=== PATIENT | female | born 1980 | race Caucasian/White ===

== ENCOUNTER → 2019-02-21 | Outpatient (CLI) | payer BC ==
--- NOTE | 2019-02-25 10:22 | MM ---
Reason for exam: screening (asymptomatic). Last mammogram was performed 4 years and 6 months ago. History: Took hormonal contraceptives for 2 years. Physical Findings: A clinical breast exam by your physician is recommended on an annual basis and results should be correlated with mammographic findings. MG Screening Mammo w CAD Bilateral CC and MLO view(s) were taken. Prior study comparison: August 26, 2014, bilateral MG screening mammo w CAD. There are scattered fibroglandular densities. Stable axillary tail lymph node on the right. No significant changes when compared with prior studies. ASSESSMENT: Negative, BI-RAD 1 RECOMMENDATION: Routine screening mammogram of both breasts in 1 year.
== END | disposition home or self-care (01) ==
LOC: RADMAMWWP 14:52
PROVIDERS: ATTEND Obstetrics & Gynecology
DX: Z12.31 Encounter for screening mammogram for malignant neoplasm of breast (principal)
CPT/HCPCS: 77067

== ENCOUNTER → 2019-05-15 | Outpatient (CLI) | payer BC ==
--- NOTE | 2019-05-15 09:29 | US ---
EXAMINATION TYPE: US abdomen complete DATE OF EXAM: 05/15/2019 COMPARISON: CT 03/14/2013 CLINICAL HISTORY: R10.9 Abdominal pain. Pain after eating EXAM MEASUREMENTS: Liver Length: 14.8 cm Gallbladder Wall: 0.2 cm CBD: 0.6 cm Spleen: 11.2 cm Right Kidney: 11.1 x 3.7 x 4.4 cm Left Kidney: 10.7 x 4.7 x 4.3 cm Pancreas: Obscured by bowel gas Liver: Hyperechoic area left lobe measuring 1.5 x 1.0 x 1.1 cm, possible hemangioma vs other Gallbladder: Multiple shadowing stones visualized Evidence for sonographic Orosco's sign: No CBD: Measuring upper limits of normal Spleen: Accessory spleen visualized measuring 1.3 x 1.1 x 1.3 cm Right Kidney: No hydronephrosis or masses seen Left Kidney: No hydronephrosis. Echogenic foci mid pole visualized measuring 0.6 cm Upper IVC: wnl Abd Aorta: No sonographic evidence for AAA IMPRESSION: 1. Solitary 1.5 cm hyperechoic left hepatic lobe lesion. This most commonly represents a hemangioma i n a patient of this age with no known underlying hepatocellular disease. If there is further clinical concern this could be confirmed with three-phase enhanced CT abdomen or MRI liver mass protocol. 2. Cholelithiasis without sonographic evidence of acute cholecystitis. 3. Probable splenule adjacent to the elim ira spleen. 4. Nonobstructing 6 mm left renal calculus. No hydronephrosis of either kidney. 5. Obscuration of the pancreas by overlying bowel gas.
== END | disposition home or self-care (01) ==
LOC: RADUSWWP 08:03
PROVIDERS: ATTEND Family Medicine
DX: K80.20 Calculus of gallbladder without cholecystitis without obstruction (principal); N20.0 Calculus of kidney
CPT/HCPCS: 76700

== ENCOUNTER → 2019-11-21 | Day surgery (SDC) | payer BC ==
[2019-11-18 09:04] VITALS: BMI 32.1
[~2019-11-21] MED LIST: ACETAMINOPHEN TAB 500 MG TAB ONE; ACETAMINOPHEN TAB 500 MG TAB PO ONE; BUPIVACAINE (PF) 0.25% 30 ML VIAL SQ ONE; DEXAMETHASONE SOD PHOSPHATE 10 MG/ML 1 ML VIAL IV ONE; GLYCOPYRROLATE 0.2 MG/ML 2 ML VIAL ONE; HEPARIN SODIUM,PORCINE 5,000 UNIT/ML 1 ML VIAL ONE; HEPARIN SODIUM,PORCINE 5,000 UNIT/ML 1 ML VIAL SQ ONE; HYDROmorphone 0.5 MG/0.5 ML SYRINGE IVP PRN; KETOROLAC 30 MG/ML 1 ML VIAL ONE; LACTATED RINGERS 1,000 ML IV ONE; LACTATED RINGERS 1,000 ML IV SCH; LIDOCAINE 1% (10MG/ML) FOR IV START INTRADERMA PRN; LIDOCAINE 1% INJ 10MG/ML (20 ML MDV) ONE; MIDAZOLAM 2 MG/2 ML VIAL ONE; NALOXONE 0.4 MG/ML 1 ML VIAL IV PRN; NEOSTIGMINE 1 MG/ML 10 ML VIAL ONE; ONDANSETRON 4 MG/2 ML VIAL IVP ONE; ONDANSETRON 4 MG/2 ML VIAL ONE; PROPOFOL 10 MG/ML 20 ML VIAL IV ONE; ROCURONIUM 10 MG/ML (5 ML VIAL) IV ONE; SCOPOLAMINE 1.5MG/72HR PATCH TRANSDERM ONE; SUCCINYLCHOLINE CHLORIDE 100 MG/5 ML SYR IV ONE; fentaNYL (PF) 50 MCG/ML 2 ML AMP ONE; traMADol 50 MG TAB ONE; traMADol 50 MG TAB PO ONE; traMADol 50 MG TAB PO PRN
--- NOTE | 2019-11-21 07:44 | P.GSHP ---
History of Present Illness H&P Date: 11/21/19 Chief Complaint: Chronic cholecystitis 39-year-old female here today for elective cholecystectomy. Describes intermittent pains right upper quadrant. Frequently occurs at night. Some nausea. No change in the color of her skin urine or stools. Labs reviewed. Ultrasound shows gallstones. Past Medical History Additional Past Medical History / Comment(s): SEASONAL ALLERGIES. GALLBLADDER DISORDER. KIDNEY STONES History of Any Multi-Drug Resistant Organisms: None Reported Additional Past Surgical History / Comment(s): KIDNEY STONE REMOVED Past Anesthesia/Blood Transfusion Reactions: No Reported Reaction Past Psychological History: No Psychological Hx Reported Smoking Status: Former smoker Past Alcohol Use History: Occasional Additional Past Alcohol Use History / Comment(s): QUIT SMOKING 2005 Past Drug Use History: None Reported - Past Family History Father Family Medical History: Cancer Brother(s) Family Medical History: Cancer Medications and Allergies Home Medications Medication Instructions Recorded Confirmed Type No Known Home Medications 11/18/19 11/18/19 History Allergies Allergy/AdvReac Type Severity Reaction Status Date / Time No Known Allergies Allergy Verified 11/18/19 09:01 Surgical - Exam Physical exam: General: Well-developed, well-nourished HEENT: Normocephalic, sclerae nonicteric Abdomen: Nontender, nondistended Extremities: No edema Neuro: Alert and oriented Assessment and Plan (1) Chronic cholecystitis Narrative/Plan: Will proceed with laparoscopic cholecystectomy at this time. Risks of bleeding, infection, bile leak, bile duct injury, retained common bile duct stone, trocar injury, conversion to an open procedure, hernia, anesthesia related complications were reviewed. The patient understands and wishes to proceed. Current Visit: Yes Status: Acute Code(s): K81.1 - CHRONIC CHOLECYSTITIS SNOMED Code(s): 06479616
[2019-11-21 09:25] VITALS: TEMP 96.8
--- NOTE | 2019-11-21 09:30 | P.OP ---
Date of Procedure: 11/21/19 Procedure(s) Performed: PREOPERATIVE DIAGNOSIS: Chronic cholecystitis POSTOPERATIVE DIAGNOSIS: Same PROCEDURE: Laparoscopic cholecystectomy SURGEON: Sola EBL: Minimal see anesthesia record ANESTHESIA: Gen. COMPLICATIONS: None OPERATIVE PROCEDURE: The patient was brought and placed on the operating room table in the supine position. The patient was placed under general anesthesia at that time. The abdomen was prepped and draped in the usual sterile fashion. A small vertical infraumbilical incision was made. The fascia was grasped with the Izaiah forceps. The fascia was retracted anteriorly. The Veress needle was advanced into the peritoneal cavity. The saline drop test was normal. Insufflation quickly reached 15 mm. I was concerned we were preperitoneal. At that point a 5 mm optical trocar was used to enter the peritoneal cavity in the right upper quadrant without difficulty. Full insufflation took place up to 15 mmHg. the umbilical site was inspected. There was noted to be some air in the preperitoneal space as expected. A 5 mm trocar was placed into the umbilical trocar site without difficulty. An additional 5 mm trocar was placed in the lateral aspect of the right upper quadrant and a 12 mm trocar was advanced into the epigastric incision site. The gallbladder was retracted superiorly and laterally. The peritoneum overlying the infundibulum was bluntly dissected. The gallbladder was chronically inflamed. The patient had a short cystic duct making the dissection somewhat challenging. Once we're able to fully identify the cystic duct and the cystic artery with confidence the cystic duct was divided after the placement of 3 clips on the patient's side. The cystic artery was identified and clipped as well. A small vessel was seen along the gallbladder fossa and clipped as well. The gallbladder was then removed from the liver bed using electrocautery. The gallbladder was then removed from the epigastric trocar site with an Endo Catch bag. The gallbladder fossa was irrigated with saline. There was no evidence of any bleeding or biliary drainage seen. The fascia at the 12 millimeter site was closed using a Quincy- Hsemar 0 Vicryl stitch. The trochars were then removed. The skin at all 4 sites was closed using a 4-0 Monocryl stitch. Skin glue was utilized on the incision sites. At the end of this procedure the sponge and needle counts were correct. DISPOSITION: Stable to the recovery room
[2019-11-21 09:49] VITALS: RESP 16
[2019-11-21 11:40] VITALS: BP 170/99; PULSE 58
== END ==
LOC: OR 06:32
PROVIDERS: ATTEND Surgery
DX: K80.10 Calculus of gallbladder with chronic cholecystitis without obstruction (principal); J30.2 Other seasonal allergic rhinitis; Z87.442 Personal history of urinary calculi; Z87.891 Personal history of nicotine dependence; Z80.9 Family history of malignant neoplasm, unspecified
CPT/HCPCS: 81025; 88304; 47562; J2250; J1644; J1100; J2710; J0690; J2405; J2001; J3010; J1885; J0330; J2704

== ENCOUNTER → 2020-02-20 | Outpatient (CLI) | payer BC | END | disposition home or self-care (01) | LOC: LABWHC1 14:50 | PROVIDERS: ATTEND Family Medicine | DX: Z03.89 Encounter for observation for other suspected diseases and conditions ruled out (principal) | CPT/HCPCS: U0003; C9803 ==

== ENCOUNTER → 2020-05-14 | Outpatient (CLI) | payer BC ==
--- NOTE | 2020-05-18 10:24 | MM ---
Reason for exam: screening (asymptomatic). Last mammogram was performed 1 year and 3 months ago. History: Took hormonal contraceptives for 2 years. Physical Findings: A clinical breast exam by your physician is recommended on an annual basis and results should be correlated with mammographic findings. MG Screening Mammo w CAD Bilateral CC and MLO view(s) were taken. Prior study comparison: February 21, 2019, bilateral MG screening mammo w CAD. August 26, 2014, bilateral MG screening mammo w CAD. There are scattered fibroglandular densities. There is chronic nodularity in the right breast. No significant changes when compared with prior studies. ASSESSMENT: Negative, BI-RAD 1 RECOMMENDATION: Routine screening mammogram of both breasts in 1 year.
== END | disposition home or self-care (01) ==
LOC: RADMAMWWP 16:11
PROVIDERS: ATTEND Obstetrics & Gynecology
DX: Z12.31 Encounter for screening mammogram for malignant neoplasm of breast (principal)
CPT/HCPCS: 77067

== ENCOUNTER → 2020-09-16 | Outpatient (CLI) | payer BC ==
--- NOTE | 2020-09-17 06:39 | CT ---
EXAMINATION TYPE: CT abdomen wo/w con DATE OF EXAM: 09/16/2020 HISTORY: Hepatomegaly. Spot on liver. CT DLP: 1165.90mGycm Automated Exposure Control for Dose Reduction was Utilized. CONTRAST: CT scan of the abdomen is performed with oral and without and with IV Contrast, patient injected with 100 mL of Isovue 300. COMPARISON: Complete abdominal ultrasound May 15, 2019 FINDINGS: LUNG BASES: No significant abnormality is appreciated. LIVER/GB: Interval cholecystectomy with surgical clips now identified. Liver appears normal in size o n CT no concerning solid or cystic intrahepatic mass identified. Small hyperechoic area on ultrasound is anterior near fissure favors focal fatty infiltration. Single benign punctate calcification anter ior superior aspect series 3 image 11. PANCREAS: No significant abnormality is seen. SPLEEN: No significant abnormality is seen. ADRENALS: No significant abnormality is seen. KIDNEYS: Noncontrast images show 2 adjacent calculi lower pole left kidney coronal image 57, largest measures 5 mm long axis axial image 32 series 3. There is a punctate 1 to 2 mm calculus right kidney midpole level axial image 29 series 3 postcontrast images show symmetric cortical medullary uptake an d excretion without hydronephrosis bilaterally. Punctate hypodense subcentimeter lesion upper pole le ft kidney image 17 series 12 too small to further characterize presumed benign. BOWEL: No significant abnormality is seen. LYMPH NODES: No greater than 1cm abdominal lymph nodes are appreciated. OSSEOUS STRUCTURES: No significant abnormality is seen. OTHER: No significant additional abnormality is seen. IMPRESSION: Liver normal in size. No concerning intrahepatic mass identified on CT. Incidental few sm all bilateral nonobstructing renal calculi on CT. Interval cholecystectomy noted.
== END | disposition home or self-care (01) ==
LOC: RADCTMAIN 17:19
PROVIDERS: ATTEND Family Medicine
DX: R16.0 Hepatomegaly, not elsewhere classified (principal); N20.0 Calculus of kidney; Z90.49 Acquired absence of other specified parts of digestive tract
CPT/HCPCS: 74170; Q9967

== ENCOUNTER → 2021-06-29 | Outpatient (CLI) | payer BC ==
--- NOTE | 2021-07-01 12:03 | MM ---
Reason for exam: screening (asymptomatic). Last mammogram was performed 1 year and 2 months ago. History: Took hormonal contraceptives for 2 years. Physical Findings: A clinical breast exam by your physician is recommended on an annual basis and results should be correlated with mammographic findings. MG Screening Mammo w CAD Bilateral CC and MLO view(s) were taken. XCCL view(s) were taken of the right breast. Prior study comparison: May 14, 2020, bilateral MG screening mammo w CAD. February 21, 2019, bilateral MG screening mammo w CAD. There are scattered fibroglandular densities. There is chronic nodularity in the right breast. No significant changes when compared with prior studies. ASSESSMENT: Benign, BI-RAD 2 RECOMMENDATION: Routine screening mammogram of both breasts in 1 year.
== END | disposition home or self-care (01) ==
LOC: RADMAMWWP 09:34
PROVIDERS: ATTEND Obstetrics & Gynecology
DX: Z12.31 Encounter for screening mammogram for malignant neoplasm of breast (principal)
CPT/HCPCS: 77067

== ENCOUNTER → 2022-07-27 | Outpatient (CLI) | payer BC ==
--- NOTE | 2022-07-28 15:19 | MM ---
Reason for Exam: Screening (asymptomatic). Last mammogram was performed 1 year(s) and 1 month(s) ago. Patient History: Menarche at age 10. First Full-Term at age 26. Patient has history of breast feeding. Patient used Hormonal Contraceptives for 2 years. Last menstrual period: 03/23/2022 Risk Values: Martha 5 year model risk: 0.9%. NCI Lifetime model risk: 10.7%. Prior Study Comparison: 02/21/2019 Bilateral Screening Mammogram, [facility]. 05/14/2020 Bilateral Screening Mammogram, [facility]. 06/29/2021 Bilateral Screening Mammogram, [facility]. Tissue Density: There are scattered fibroglandular densities. Findings: Analyzed By CAD. Pattern appears symmetrical and stable. No significant interval change is evident. Intramammary lymph node is in the upper outer right breast, stable from comparison No suspicious groups of microcalcifications, spiculated or lobular masses, architectural distortion or other secondary signs of malignancy are mammographically apparent. Overall Assessment: Benign, BI-RAD 2 Management: Screening Mammogram of both breasts in 1 year. A negative mammogram report should not preclude additional follow up of suspicious palpable abnormalities. Patient should continue monthly self breast exam. A clinical breast exam by your physician is recommended on an annual basis and results should be correlated with mammographic findings. Electronically signed and approved by: Sang Butler D.O. Radiologis
== END | disposition home or self-care (01) ==
LOC: RADMAMWWP 07:29
PROVIDERS: ATTEND Obstetrics & Gynecology
DX: Z12.31 Encounter for screening mammogram for malignant neoplasm of breast (principal)
CPT/HCPCS: 77067

== ENCOUNTER → 2023-07-10 | Outpatient (CLI) | payer BC ==
[2023-07-11 12:44] LABS: Aureo. pullulans IgE <0.10 kU/L (<0.10); Aureo. pullulans IgE Class CLASS 0; Epicoccum purpurascens Class CLASS 0; Epicoccum purpurascens IgE <0.10 kU/L (<0.10); Johnson Grass IgE Class CLASS 0; Mucor racemosus IgE <0.10 kU/L (<0.10); Mucor racemosus IgE Class CLASS 0; Rhizopus nigricans IgE <0.10 kU/L (<0.10); Rhizopus nigricans IgE Class CLASS 0; Timothy Grass IgE <0.10 kU/L (<0.10); Timothy Grass IgE Class CLASS 0
[2023-07-11 12:45] LABS: Candida albicans IgE Class CLASS 0; Cottonwood IgE <0.10 kU/L (<0.10); Lamb's Quarter IgE <0.10 kU/L (<0.10); Lamb's Quarter IgE Class CLASS 0; S.rostrata/Helminth Class CLASS 0; S.rostrata/Helminth IgE <0.10 kU/L (<0.10); Sycamore(Mpl.Lf) IgE <0.10 kU/L (<0.10); Sycamore(Mpl.Lf) IgE Class CLASS 0; White Ash IgE Class CLASS 0
[2023-07-11 12:46] LABS: Com. Pigweed IgE <0.10 kU/L (<0.10); Com. Pigweed IgE Class CLASS 0; English Plantain IgE Class CLASS 0
== END | disposition home or self-care (01) ==
LOC: LABWHC1 07:36
PROVIDERS: ATTEND Otolaryngology
DX: J30.89 Other allergic rhinitis (principal)
CPT/HCPCS: 36415; 82785; 86001; 86003

== ENCOUNTER → 2023-08-09 | Outpatient (CLI) | payer BC ==
--- NOTE | 2023-08-09 18:22 | MM ---
Reason for Exam: Screening (asymptomatic). Last mammogram was performed 1 year(s) and 1 month(s) ago. Patient History: Menarche at age 10. First Full-Term at age 26. Postmenopausal. Patient has history of breast feeding. Patient used Hormonal Contraceptives for 2 years. Risk Values: Martha 5 year model risk: 0.9%. NCI Lifetime model risk: 10.6%. Prior Study Comparison: 02/21/2019 Bilateral Screening Mammogram, [facility]. 05/14/2020 Bilateral Screening Mammogram, [facility]. 06/29/2021 Bilateral Screening Mammogram, [facility]. 07/27/2022 Bilateral MG screening mammo w CAD, [facility]. Tissue Density: There are scattered areas of fibroglandular density. Findings: Analyzed By CAD. The pattern is symmetrical. No significant interval change is evident. No suspicious groups of microcalcifications, spiculated or lobular masses, architectural distortion or other secondary signs of malignancy are mammographically apparent. Overall Assessment: Benign, BI-RAD 2 Management: Screening Mammogram of both breasts in 1 year. A negative mammogram report should not preclude additional follow up of suspicious palpable abnormalities. Patient should continue monthly self breast exam. A clinical breast exam by your physician is recommended on an annual basis and results should be correlated with mammographic findings. Note on Martha scores and lifetime risk: 1. A Martha score greater than 3% is considered moderate risk. If this is the case, consider specialist referral to assess eligibility for a risk reducing agent. 2. If overall lifetime risk for the development of breast cancer is 20% or higher, the patient may qualify for future screening with alternating mammogram and breast MRI. Electronically signed and approved by: Sang Butler D.O. Radiologis
== END | disposition home or self-care (01) ==
LOC: RADMAMWWP 07:31
PROVIDERS: ATTEND Obstetrics & Gynecology
DX: Z12.31 Encounter for screening mammogram for malignant neoplasm of breast (principal); Z78.0 Asymptomatic menopausal state
CPT/HCPCS: 77067

== ENCOUNTER → 2024-10-24 | Outpatient (CLI) | payer BC ==
--- NOTE | 2024-10-27 07:41 | MM ---
Reason for Exam: Screening (asymptomatic). Last mammogram was performed 1 year(s) and 2 month(s) ago. Patient History: Menarche at age 10. First Full-Term at age 26. Postmenopausal. Patient has history of breast feeding. Patient used Hormonal Contraceptives for 2 years. Risk Values: Martha 5 year model risk: 0.9%. NCI Lifetime model risk: 10.5%. Prior Study Comparison: 06/29/2021 Bilateral Screening Mammogram, [facility]. 07/27/2022 Bilateral MG screening mammo w CAD, [facility]. 08/09/2023 Bilateral MG screening mammo w CAD, [facility]. Tissue Density: The breasts are almost entirely fatty. Findings: Analyzed By CAD. Right breast: There is no suspicious group of microcalcifications or new suspicious mass. Left breast: There is no suspicious group of microcalcifications or new suspicious mass. Overall Assessment: Negative, BI-RAD 1 Management: Screening Mammogram of both breasts in [address] [facility] will attempt to contact patient to return for supplemental views and ultrasound if indicated. Patient should continue monthly self-breast exams. A clinical breast exam by your physician is recommended on an annual basis. This exam should not preclude additional follow-up of suspicious palpable abnormalities. Note on Martha scores and lifetime risk: 1. A Martha score greater than 3% is considered moderate risk. If this is the case, consider specialist referral to assess eligibility for a risk reducing agent. 2. If overall lifetime risk for the development of breast cancer is 20% or higher, the patient may qualify for future screening with alternating mammogram and breast MRI. [facility], , 10/27/2024 7:39 AM. Electronically signed and approved by: Lucas Marrero DO
== END | disposition home or self-care (01) ==
LOC: RADMAMWWP 16:23
PROVIDERS: ATTEND Obstetrics & Gynecology
DX: Z12.31 Encounter for screening mammogram for malignant neoplasm of breast (principal); R92.313 Mammographic fatty tissue density, bilateral breasts; Z78.0 Asymptomatic menopausal state; Z92.0 Personal history of contraception
CPT/HCPCS: 77067